=== PATIENT | female | born 1940 ===

== ENCOUNTER 2018-07-05 06:05 | Inpatient (IN) | payer MEDICARE ==
[2018-06-30 13:46] VITALS: BMI 29.0
[2018-07-05] MEDS ORDERED: Lactated Ringer's 1,000 ML IV ONE ×2 (06:57→10:02)
[2018-07-05] MEDS ORDERED: Succinylcholine 200 mg/10 ml Inj IV ONE (07:43)
[2018-07-05] MEDS ORDERED: EPINEPHrine 1 mg/ml (1:1000) Inj ONE ×2 (07:43→07:57)
[2018-07-05] MEDS ORDERED: Bupivacaine HCl 0.25% PF (30 ml) Inj ONE (07:43)
[2018-07-05] MEDS ORDERED: Lidocaine 4% (Laryng-O-Jet) Kit MM ONE (07:43)
[2018-07-05] MEDS ORDERED: Rocuronium 10 mg/ml (5 ml) ONE (07:43)
[2018-07-05] MEDS ORDERED: Propofol 10 mg/ml Inj (20 ML) ONE (07:43)
[2018-07-05] MEDS ORDERED: Thrombin Topical 5,000 Int Units Spray Kit ONE (07:49)
[2018-07-05] MEDS ORDERED: GELATIN SPONGE,ABSORB/PORCINE 1 EACH SPONGE TP ONE (07:49)
[2018-07-05] MEDS ORDERED: Morphine 1 mg/ml preservative-free Inj(Duramorph) ONE (07:56)
[2018-07-05] MEDS ORDERED: Bupivacaine HCl 0.5% PF (30 ml) Inj ONE (07:56)
[2018-07-05] MEDS ORDERED: Sodium Chloride 0.9% 20 ML IV ONE (07:57)
[2018-07-05 08:12] LABS: HEMOGLOBIN 12.6 g/dL (12.0-16.0); MEAN CELL VOLUME 92.1 fl (81.0-99.0); MEAN CORPUSCULAR HEMOGLOBIN 31.2 pg (27.0-31.0); MEAN CORPUSCULAR HGB CONC 33.9 g/dL (33.0-37.0); RBC 4.04 Mil/uL (3.80-5.20); RED CELL DISTRIBUTION WIDTH 13.5 % (11.5-14.5); WHITE BLOOD COUNT 5.2 K/uL (4.8-10.8)
[2018-07-05 08:16] LABS: PROTHROMBIN TIME 11.2 Seconds (9.8-13.1)
[2018-07-05 08:18] LABS: PARTIAL THROMBOPLASTIN TIME 35.3 Seconds (25.6-37.1)
[2018-07-05] MEDS ORDERED: Dexamethasone 4 mg/1 ml ONE (08:45)
[2018-07-05] MEDS ORDERED: Esmolol 100 mg/10ml Inj IV ONE (08:56)
[2018-07-05] MEDS ORDERED: Sodium Chloride 0.9% Inj (10mL) IV ONE (09:35)
[2018-07-05] MEDS ORDERED: Sodium Chloride 0.9% 3,000 ML IV ONE (10:15)
[2018-07-05] MEDS ORDERED: Dexamethasone 4 mg/1 ml IVP PRN (10:27)
[2018-07-05] MEDS ORDERED: DiphenhydrAMINE 50 mg/ml Inj IVP PRN (10:27)
[2018-07-05] MEDS ORDERED: Lactated Ringer's 1,000 ML IV SCH (10:30)
[2018-07-05] MEDS ORDERED: Sodium Chloride 0.9% 1,000 ML IV SCH (10:30)
--- NOTE | 2018-07-05 10:40 | PCM.SURG1 ---
Surgeon's Initial Post Op Note - Surgeon's Notes Surgeon: Misael Upton MD Utility Service Worker: Josr Boothe PA-C, Estrellita Vo PA-C Type of Anesthesia: General Endo Anesthesia Administered By: Dr. Daniel Pre-Operative Diagnosis: Right knee DJD Operative Findings: tourniquet: 80 min @350mmHg Post-Operative Diagnosis: same Operation Performed: Right total knee replacement Specimen/Specimens Removed: bone Estimated Blood Loss: EBL {In ML}: 50 Blood Products Given: N/A Drains Used: No Drains Post-Op Condition: Fair Date of Surgery/Procedure: 07/05/18 Time of Surgery/Procedure: 10:39
[2018-07-05] MEDS ORDERED: Oxycodone/Acetaminophen 5/325 mg Tab PO PRN (11:10)
--- NOTE | 2018-07-05 14:08 | RAD ---
Date of service: 07/05/2018 PROCEDURE: Right Knee Radiographs. HISTORY: Patient can PACU status post TKR COMPARISON: Comparison made with radiographs of the right knee 04/30/2018 FINDINGS: BONES: Status post right total knee arthroplasty. Hardware appears intact with satisfactory alignment. . Postoperative changes within the surrounding soft tissues including edema subcutaneous air and insitu drainage catheter. JOINTS: As above JOINT EFFUSION: Small suprapatellar joint effusion OTHER FINDINGS: None. IMPRESSION: Status post right total knee arthroplasty. Hardware appears intact with satisfactory alignment. . Postoperative changes within the surrounding soft tissues including edema subcutaneous air and insitu drainage catheter.
[2018-07-05] MEDS: Aspirin 325 mg EC Tablets PO SCH (17:17)
[2018-07-05] MEDS: ceFAZolin 2 GM in Sodium Chloride 0.9% 100 ML IVPB SCH (18:22)
[2018-07-05] MEDS: oxyCODONE 10 mg ER Tab (oxyCONTIN) PO SCH (21:05)
[2018-07-05] MEDS: Pantoprazole 40 mg EC Tab PO SCH (21:05)
--- NOTE | 2018-07-05 23:15 | OP ---
Copied To: Adrian Upton MD Attending MD: Adrian Upton MD PROCEDURE DATE: 07/05/2018 PREOPERATIVE DIAGNOSIS: Right knee osteoarthritis. POSTOPERATIVE DIAGNOSIS: Right knee osteoarthritis. PROCEDURE: Right total knee replacement. ATTENDING PHYSICIAN: Adrian Upton MD CENTRIFUGAL SCREEN TENDER: Bronson Boothe PA-C IMPLANTS SIZE: [employer]actech size-2 tibial baseplate, size-2 femur, 9-mm polyethylene insert, 29-mm patella. ANESTHESIA TYPE: General. ESTIMATED BLOOD LOSS: 100 mL. COMPLICATIONS: None. HISTORY: The patient with prolonged history of right knee pain progressively getting worse despite extensive conservative management, which included activity modification, injections, anti-inflammatory modification and physical therapy. X-rays had revealed advanced arthritis. Patient was indicated for total knee replacement due to continued pain and limited mobility. I had a detailed discussion with the patient in the office explaining the nature of the surgery, alternatives of surgery, risks and benefits, rehabilitation protocol and surgical markings. Risks of surgery include but not limited to continued pain, lack of motion, infection, vascular injury, DVT/PE, nerve injury including peroneal nerve dysfunction, reflex sympathetic dystrophy, compartment syndrome, unforeseen medical and/or anesthesia complications, limb loss, and even . The patient expressed an understanding of the risks and possible benefits of the procedure, and is also aware of the alternatives to surgery. PROCEDURE: On the day of the surgery, the patient was admitted to pre-operative holding area. A laterality sheet was completed confirming the correct operative site. The correct surgical knee was marked in the holding area and informed consent was signed from the patient. Once again, I reviewed the risks and benefits of the surgery with the patient in detail. These risks include but are not limited to continued pain, lack of motion, infection, vascular injury, DVT / PE, nerve injury including peroneal nerve dysfunction, reflex sympathetic dystrophy, symptomatic hardware, need for further procedure and surgeries, instability, iatrogenic fractures, compartment syndrome, unforeseen medical and/or anesthesia complications, limb loss, and even . The patient expressed an understanding of the risks and possible benefits of the procedure, also aware of the alternatives to surgery and signed the informed consent. The patient was transported to the operating room and placed in the supine position, general anesthesia was obtained. Exam under anesthesia range of motion from 5 to 110, stable to varus and valgus stress. A padded tourniquet was applied to patient's operative thigh and appropriate prophylactic antibiotics were given. The operative leg was draped and prepped in standard sterile manner. Timeout was completed, confirming patient's right knee to be the correct operative site. Using an Esmarch, the extremity was exsanguinated and tourniquet was inflated to 350 mmHg. The surgical incision markings were made using patella border, tibial tubercle, patella and quadriceps tendon. Using a 10 blade, a midline incision was made. Skin dissection was taken until the prepatellar fascia was identified and the corners of the patellar tendon were marked for proper closure at the end of the procedure. Using a fresh 10 blade, a medial parapatellar arthrotomy was performed. The knee was exposed in the standard manner. The deep MCL was elevated for exposure, medial and lateral menisci were removed, ACL and PCL were also transected. The tibia was subluxed anteriorly. Planned tibial cut was made with power saw, using extra-medullary guide, perpendicular to mechanical axis of the tibia. After the cut was made, the alignment was also checked and was found to be appropriate. Tibial cut surface was measured with trial base plate and it was noted that size-2 tibial baseplate was provide sufficient coverage without overhang. Tibial component was externally rotated and marked. Next, the knee was placed into 90 degrees of flexion. A drill hole was made within the femoral notch anterior to PCL insertion for placement of intramedullary femoral ronald. Intramedullary femoral ronald was inserted within the femoral canal and planned distal femoral cut was made. After the cut, knee was brought into full extension. Spacer blocks were used to check the extension balancing both in full extension and 30 degrees of flexion. It was found that size-9 trial spacer block allowed full extension with symmetric varus and valgus balancing. Next, we proceed with Patella resurfacing. Patella width was found to 23 mm. Using the free-hand technique the arthritic patella surface was resected. Patella was sized using the guide and it was noted that 29 mm. Patella dome button would be appropriate for the patient. Next, the size of femoral component was determined using the posterior referencing guide. It was noted that a size-2 femur. Femur would be appropriate for this patient without causing any significant notching. A 4 x 1 cutting block was placed and flexion gap balancing was checked. The flexion gap was found to be symmetric to the extension gap. Anterior and posterior condyle, anterior and posterior chamfer cuts were made. Next, appropriate size box cut for femoral component was prepared using the guide. The femoral trial component was impacted onto the distal femur. Appropriate size tibial trial component was also placed on the cut surface of the tibia. Using the drill and punch, keel for tibial implant was prepared. Trial tibial tray was secured onto the tibia using pins. Different size trial polyethylene inserts were secured on to the trial tibial tray to critically assess the following parameters: Full range of motion, extension and flexion gap balancing, mid-flexion stability, anterior and posterior drawer, and patellar tracking. All parameter were found to be satisfactory with 11-mm insert. All the trial components were removed. Implants were opened on the back table. Cement was mixed and we proceed with cement fixation of the implants. Tibial tray, femoral component and patellar dome button were secured with cement. Polyethylene insert was secured onto the tibial tray using locking mechanism. The knee was reduced and brought into full extension. Cement was allowed to harden until final component fixation. Knee was taken through the final range of motion for stability testing, and found to be satisfactory. Upon final cement fixation of all components, it was noted that there is a slight lateral maltracking of the patella. Decision was made to address the patellar maltracking with lateral release. Using the electrocautery, limited lateral prepatellar arthrotomy was performed, which improved patellar tracking. 60 cc of custom cocktail mixture was injected into posterior capsule, MCL, LCL, quadriceps tendon, and patellar tendon. Wound was copiously irrigated with sterile antibiotic solution using pulse lavage. Arthrotomy was closed using heavy suture and wound was closed in standard manner. Patient was extubated, transferred to stretcher and taken to the recovery room. Post-operative instructions were provided, physical therapy consult was requested along with DVT prophylaxis and appropriate pain medications. During this procedure, I was assisted by Bronson Boothe PA-C, who assisted in positioning the patient on the operating room table as well as transferring the patient from the operating room table to the recovery room stretcher. In addition, Bronson Boothe assisted me during the actual operative procedure by positioning, protecting critical neurovascular structures, exposure of the joint, and proper positioning of the implants. The presence of Bronson oBothe as my operative assistant professor of german was medically necessary to ensure the utmost safety of the patient in the pre, intra-, and post-operative periods. Adrian Upton MD
--- NOTE | 2018-07-06 00:42 | CP.PCM.HP ---
History of Present Illness - History of Present Illness History of Present Illness: This is a 78 y/o female admitted for right TKR for severe DJD knee She had tried conservative measures but to no avail. Medical Hx HTn Hyperlipidemia gastritis OA Present on Admission - Present on Admission Any Indicators Present on Admission: No History of DVT/PE: No History of Uncontrolled Diabetes: No Urinary Catheter: No Decubitus Ulcer Present: No Review of Systems - Musculoskeletal Musculoskeletal: Arthralgias Past Patient History - Past Medical History & Family History Past Medical History?: Yes - Past Social History Smoking Status: Never Smoked - CARDIAC Hx Cardiac Disorders: Yes Hx Hypertension: Yes - PULMONARY Hx Respiratory Disorders: No - NEUROLOGICAL Hx Neurological Disorder: No - HEENT Hx HEENT Problems: Yes Hx Cataracts: Yes - RENAL Hx Chronic Kidney Disease: No - ENDOCRINE/METABOLIC Hx Endocrine Disorders: No - HEMATOLOGICAL/ONCOLOGICAL Hx Blood Disorders: No - INTEGUMENTARY Hx Dermatological Problems: No - MUSCULOSKELETAL/RHEUMATOLOGICAL Hx Musculoskeletal Disorders: Yes Hx Arthritis: Yes (knees) - GASTROINTESTINAL Hx Gastrointestinal Disorders: Yes Hx Gastritis: Yes - GENITOURINARY/GYNECOLOGICAL Hx Genitourinary Disorders: No - PSYCHIATRIC Hx Psychophysiologic Disorder: No Hx Substance Use: No - SURGICAL HISTORY Hx Surgeries: Yes Hx Arthroscopy: Yes (right knee) Hx Cataract Extraction: Yes (bilateral) Hx Herniorrhaphy: Yes (umbilical hernia) - ANESTHESIA Hx Anesthesia: Yes Hx Anesthesia Reactions: No Has any member of the family had a problem w/ anesthesia?: No Meds Allergies/Adverse Reactions: Allergies Allergy/AdvReac Type Severity Reaction Status Date / Time No Known Allergies Allergy Verified 05/25/18 20:02 Physical Exam - Head Exam Head Exam: NORMAL INSPECTION - Eye Exam Eye Exam: Normal appearance - ENT Exam ENT Exam: Mucous Membranes Moist - Respiratory Exam Respiratory Exam: Clear to Auscultation Bilateral - Cardiovascular Exam Cardiovascular Exam: REGULAR RHYTHM - Neurological Exam Neurological exam: CN II-XII Intact - Psychiatric Exam Psychiatric exam: Normal Affect Results - Vital Signs Recent Vital Signs: Last Vital Signs Temp 98.6 F 07/05/18 21:00 Pulse 87 07/05/18 21:00 Resp 18 07/05/18 21:00 BP 128/55 L 07/05/18 21:00 Pulse Ox 98 07/05/18 21:00 - Labs Result Diagrams: 07/05/18 07:30 Labs: Laboratory Results - last 24 hr 07/05/18 07/05/18 07/05/18 07:30 07:30 07:30 WBC 5.2 RBC 4.04 Hgb 12.6 Hct 37.3 MCV 92.1 MCH 31.2 H MCHC 33.9 RDW 13.5 Plt Count 256 PT 11.2 INR 1.0 APTT 35.3 Blood Type AB POSITIVE Blood Type Confirm Antibody Screen Negative BBK History Checked No verified bt 07/05/18 08:50 WBC RBC Hgb Hct MCV MCH MCHC RDW Plt Count PT INR APTT Blood Type Blood Type Confirm AB POSITIVE Antibody Screen BBK History Checked Assessment & Plan (1) Status post total knee replacement Status: Acute (2) Hypertension Status: Acute (3) Hyperlipidemia Status: Acute
[2018-07-06] MEDS: ceFAZolin 2 GM in Sodium Chloride 0.9% 100 ML IVPB SCH (01:20)
[2018-07-06 06:19] LABS: HEMOGLOBIN 11.1 g/dL (12.0-16.0); MEAN CELL VOLUME 93.6 fl (81.0-99.0); MEAN CORPUSCULAR HGB CONC 33.1 g/dL (33.0-37.0); RBC 3.58 Mil/uL (3.80-5.20); RED CELL DISTRIBUTION WIDTH 13.7 % (11.5-14.5); WHITE BLOOD COUNT 9.4 K/uL (4.8-10.8)
[2018-07-06 06:23] LABS: BLOOD UREA NITROGEN 18 mg/dl (7-17); CALCIUM 7.9 mg/dL (8.4-10.2); GFR NON-AFRICAN AMERICAN > 60
[2018-07-06] MEDS: oxyCODONE 10 mg ER Tab (oxyCONTIN) PO SCH ×2 (08:49→20:24)
[2018-07-06] MEDS: Pantoprazole 40 mg EC Tab PO SCH (08:50)
[2018-07-06] MEDS ORDERED: Aspirin 325 mg EC Tablets PO SCH (09:00)
[2018-07-06] MEDS: Aspirin 325 mg EC Tablets PO SCH ×2 (10:16→16:47)
--- NOTE | 2018-07-06 12:07 | CP.PCM.PN ---
Subjective - Date & Time of Evaluation Date of Evaluation: 07/06/18 Time of Evaluation: 10:30 - Subjective Subjective: Patient seen and examined at bedside comfortable. Pain is well controlled. Tolerated PT well. No acute events overnight. Denies CP/SOB/N/V/D/fever/ dizziness. Objective - Vital Signs/Intake and Output Vital Signs (last 24 hours): Temp Pulse Resp BP Pulse Ox 97.8 F 54 L 18 114/67 96 07/06/18 08:54 07/06/18 10:57 07/06/18 08:54 07/06/18 08:54 07/06/18 10:57 - Medications Medications: Current Medications Acetaminophen (Tylenol 325mg Tab) 650 mg PO Q6 PRN PRN Reason: Fever > 101 degrees Aspirin (Ecotrin) 325 mg PO BID [facility] Last Admin: 07/06/18 10:16 Dose: 325 mg Atorvastatin Calcium (Lipitor) 20 mg PO HS [facility] Last Admin: 07/05/18 21:05 Dose: 20 mg Celecoxib (Celebrex) 200 mg PO DAILY [facility] Docusate Sodium (Colace) 100 mg PO BID [facility] Last Admin: 07/06/18 08:47 Dose: 100 mg Lactated Ringer's (Lactated Ringer's) 1,000 mls @ 125 mls/hr IV .Q8H [facility] Ketorolac Tromethamine (Toradol) 15 mg IVP Q8 [facility] Stop: 07/07/18 09:01 Last Admin: 07/06/18 10:14 Dose: 15 mg Losartan Potassium (Cozaar) 100 mg PO DAILY [facility] Last Admin: 07/06/18 08:48 Dose: 100 mg Meperidine HCl (Demerol) 12.5 mg IVP Q5M PRN PRN Reason: Shivering/Rigor Oxycodone HCl (Oxycontin Extended Release Tab) 10 mg PO Q12 [facility] Stop: 07/08/18 21:01 Last Admin: 07/06/18 08:49 Dose: 10 mg Oxycodone/Acetaminophen (Percocet 5/325 Mg Tab) 1 tab PO Q4 PRN PRN Reason: Pain, moderate (4-7) Stop: 07/08/18 11:11 Pantoprazole Sodium (Protonix Ec Tab) 40 mg PO DAILY [facility] Last Admin: 07/06/18 08:50 Dose: 40 mg - Labs Labs: 07/06/18 05:35 07/06/18 05:35 PT 11.2 Seconds (9.8-13.1) 07/05/18 07:30 INR 1.0 07/05/18 07:30 APTT 35.3 Seconds (25.6-37.1) 07/05/18 07:30 - Extremities Exam Additional comments: R knee: Dressings CDI, NILS intact sensation intact SP/DP/TN motor EHL/FHL/TA/G pedal pulses intact comps soft NT Assessment and Plan (1) Status post total knee replacement Assessment & Plan: POD #1 s/p R TKA doing well -Maintain NILS, will change tomorrow -DVT ppx -complete postop abx -PT/OT WBAT -CPM as per order -Discharge planning to TCU tomorrow -above d/w Dr. Upton in agreement Status: Acute
[2018-07-07 06:19] LABS: MEAN CELL VOLUME 93.8 fl (81.0-99.0); MEAN CORPUSCULAR HEMOGLOBIN 31.1 pg (27.0-31.0); MEAN CORPUSCULAR HGB CONC 33.1 g/dL (33.0-37.0); RBC 3.53 Mil/uL (3.80-5.20); RED CELL DISTRIBUTION WIDTH 13.8 % (11.5-14.5); WHITE BLOOD COUNT 7.9 K/uL (4.8-10.8)
[2018-07-07 06:33] LABS: BLOOD UREA NITROGEN 17 mg/dl (7-17); CALCIUM 8.3 mg/dL (8.4-10.2); GFR NON-AFRICAN AMERICAN > 60
[2018-07-07 08:10] VITALS: BP 122/63; RESP 20; TEMP 99; O2SAT 97
[2018-07-07] MEDS: oxyCODONE 10 mg ER Tab (oxyCONTIN) PO SCH (08:56)
[2018-07-07] MEDS: Pantoprazole 40 mg EC Tab PO SCH (08:57)
[2018-07-07] MEDS ORDERED: Cholecalciferol 1,000 INTLU TAB PO SCH (09:00)
[2018-07-07 09:03] VITALS: PULSE 97
[2018-07-07] MEDS: Aspirin 325 mg EC Tablets PO SCH (10:25)
--- NOTE | 2018-07-07 11:29 | CP.PCM.PN ---
Subjective - Date & Time of Evaluation Date of Evaluation: 07/07/18 Time of Evaluation: 10:00 - Subjective Subjective: Patient seen and examined OOB to chair comfortable. Pain is minimal. Tolerating PT and CPM well. No other complaints. Denies CP/SOB/N/V/D/fever. Objective - Vital Signs/Intake and Output Vital Signs (last 24 hours): Temp Pulse Resp BP Pulse Ox 99 F 97 H 20 122/63 97 07/07/18 08:10 07/07/18 08:58 07/07/18 08:10 07/07/18 08:58 07/07/18 08:10 - Medications Medications: Current Medications Acetaminophen (Tylenol 325mg Tab) 650 mg PO Q6 PRN PRN Reason: Fever > 101 degrees Aspirin (Ecotrin) 325 mg PO BID [facility] Last Admin: 07/07/18 10:25 Dose: 325 mg Atorvastatin Calcium (Lipitor) 20 mg PO HS [facility] Last Admin: 07/06/18 21:57 Dose: 20 mg Celecoxib (Celebrex) 200 mg PO DAILY [facility] Last Admin: 07/07/18 08:58 Dose: 200 mg Cholecalciferol (Vitamin D) 2,000 intlu PO DAILY [facility] Last Admin: 07/07/18 09:00 Dose: 2,000 intlu Docusate Sodium (Colace) 100 mg PO BID [facility] Last Admin: 07/07/18 08:58 Dose: 100 mg Lactated Ringer's (Lactated Ringer's) 1,000 mls @ 125 mls/hr IV .Q8H [facility] Losartan Potassium (Cozaar) 100 mg PO DAILY [facility] Last Admin: 07/07/18 08:58 Dose: 100 mg Oxycodone HCl (Oxycontin Extended Release Tab) 10 mg PO Q12 [facility] Stop: 07/08/18 21:01 Last Admin: 07/07/18 08:56 Dose: 10 mg Oxycodone/Acetaminophen (Percocet 5/325 Mg Tab) 1 tab PO Q4 PRN PRN Reason: Pain, moderate (4-7) Stop: 07/08/18 11:11 Pantoprazole Sodium (Protonix Ec Tab) 40 mg PO DAILY [facility] Last Admin: 07/07/18 08:57 Dose: 40 mg - Labs Labs: 07/07/18 05:20 07/07/18 05:20 PT 11.2 Seconds (9.8-13.1) 07/05/18 07:30 INR 1.0 07/05/18 07:30 APTT 35.3 Seconds (25.6-37.1) 07/05/18 07:30 - Extremities Exam Additional comments: R knee: Dressings CDI, NILS saturated with sangiunous drainage, wound clean and intact with scant bloody drainage sensation intact SP/DP/TN motor EHL/FHL/TA/G pedal pulses intact comps soft NT Assessment and Plan (1) Status post total knee replacement Assessment & Plan: POD #2 s/p R TKA doing well -NILS removed, steri-strips and dry dressings applied -DVT ppx -PT/OT WBAT -CPM as per order -Orthopedically stable for discharge to TCU -above d/w Dr. Upton in agreement Status: Acute
== END 2018-07-07 13:44 | DRG 470 ==
LOC: H.OPSURG 06:05 → H.MEDSURG1 10:30
PROVIDERS: ADMIT Family Medicine; ATTEND Family Medicine
PROC: 0SRC0J9 Replacement of Right Knee Joint with Synthetic Substitute, Cemented, Open Approach (ICD-10-PCS; principal; 2018-07-05 10:45)
DX: M17.11 Unilateral primary osteoarthritis, right knee (principal); I10 Essential (primary) hypertension; E78.5 Hyperlipidemia, unspecified; K29.70 Gastritis, unspecified, without bleeding

== ENCOUNTER 2018-07-07 11:45 | Inpatient (IN) | payer MEDICARE ==
[2018-07-07 14:03] VITALS: BMI 30.1
[2018-07-07] MEDS ORDERED: Oxycodone/Acetaminophen 5/325 mg Tab PO PRN (14:17)
[2018-07-07] MEDS ORDERED: Tuberculin 5 Units/0.1 ml Inj ID ONE (16:00)
[2018-07-07] MEDS: Aspirin 325 mg EC Tablets PO SCH (17:40)
[2018-07-07] MEDS: oxyCODONE 10 mg ER Tab (oxyCONTIN) PO SCH (21:44)
[2018-07-08 06:32] LABS: HEMOGLOBIN 11.3 g/dL (12.0-16.0); MEAN CELL VOLUME 93.5 fl (81.0-99.0); MEAN CORPUSCULAR HEMOGLOBIN 31.6 pg (27.0-31.0); MEAN CORPUSCULAR HGB CONC 33.8 g/dL (33.0-37.0); RBC 3.57 Mil/uL (3.80-5.20); RED CELL DISTRIBUTION WIDTH 13.5 % (11.5-14.5)
[2018-07-08] MEDS ORDERED: Pantoprazole 20 mg EC Tab PO SCH (09:00)
[2018-07-08] MEDS: Pantoprazole 40 mg EC Tab PO SCH (09:44)
[2018-07-08] MEDS: oxyCODONE 10 mg ER Tab (oxyCONTIN) PO SCH ×2 (09:44→20:17)
[2018-07-08] MEDS: Cholecalciferol 1,000 INTLU TAB PO SCH (09:44)
[2018-07-08] MEDS: Aspirin 325 mg EC Tablets PO SCH ×2 (09:44→19:00)
--- NOTE | 2018-07-08 09:50 | CP.PCM.PN ---
Subjective - Date & Time of Evaluation Date of Evaluation: 07/08/18 Time of Evaluation: 09:49 - Subjective Subjective: Patient states she is feeling a little better everyday. Denies CP/SOB/ dizziness. Objective - Vital Signs/Intake and Output Vital Signs (last 24 hours): Temp Pulse Resp BP Pulse Ox 98.2 F 86 20 132/70 98 07/08/18 07:40 07/08/18 07:40 07/08/18 07:40 07/08/18 07:40 07/08/18 07:40 - Medications Medications: Current Medications Aspirin (Ecotrin) 325 mg PO BID [facility] Last Admin: 07/07/18 17:40 Dose: 325 mg Atorvastatin Calcium (Lipitor) 20 mg PO HS [facility] Last Admin: 07/07/18 21:45 Dose: 20 mg Celecoxib (Celebrex) 200 mg PO DAILY [facility] Cholecalciferol (Vitamin D) 2,000 intlu PO DAILY [facility] Docusate Sodium (Colace) 100 mg PO BID [facility] Last Admin: 07/07/18 17:40 Dose: 100 mg Losartan Potassium (Cozaar) 100 mg PO DAILY [facility] Oxycodone HCl (Oxycontin Extended Release Tab) 10 mg PO Q12 [facility] Stop: 07/10/18 21:01 Last Admin: 07/07/18 21:44 Dose: 10 mg Oxycodone/Acetaminophen (Percocet 5/325 Mg Tab) 1 tab PO Q4 PRN PRN Reason: Pain, moderate (4-7) Stop: 07/10/18 14:18 Pantoprazole Sodium (Protonix Ec Tab) 40 mg PO DAILY [facility] - Labs Labs: 07/08/18 05:35 - Extremities Exam Additional comments: Right knee: incision intact, no erythema, minimal swelling, calves soft NT neg hoamns +ROM ankle/toes, sensation intact, +DP/PT pulses Assessment and Plan (1) Osteoarthritis of right knee Assessment & Plan: POD#3 s/p right TKR orthopedically stable cont VTE proph PT/OT d/w Dr. Upton, agrees with above Status: Acute (2) Vitamin D deficiency Status: Acute
--- NOTE | 2018-07-08 13:53 | CP.PCM.HP ---
<Dom Mistry - Last Filed: 07/08/18 15:46> History of Present Illness - History of Present Illness History of Present Illness: 78 yo F pmhx of htn, dyslipidemia, gastritis and OA s/p R total knee replacement POD 3. Admitted to TCU for further PT/OT. Present on Admission - Present on Admission Any Indicators Present on Admission: No History of Uncontrolled Diabetes: No Review of Systems - Constitutional Constitutional: As Per HPI - Cardiovascular Cardiovascular: absent: Chest Pain - Respiratory Respiratory: absent: Cough, Dyspnea - Gastrointestinal Gastrointestinal: absent: Abdominal Pain - Neurological Neurological: As Per HPI, Abnormal Gait (2/2 R knee replacement) Past Patient History - Past Medical History & Family History Past Medical History?: Yes - Past Social History Smoking Status: Never Smoked Alcohol: None Drugs: Denies Home Situation {Lives}: With Family - CARDIAC Hx Hypertension: Yes - PULMONARY Hx Respiratory Disorders: No - NEUROLOGICAL Hx Neurological Disorder: No - HEENT Hx HEENT Problems: Yes Hx Cataracts: Yes - RENAL Hx Chronic Kidney Disease: No - ENDOCRINE/METABOLIC Hx Endocrine Disorders: No - HEMATOLOGICAL/ONCOLOGICAL Hx AIDS: No Hx Human Immunodeficiency Virus (HIV): No - INTEGUMENTARY Hx Dermatological Problems: No - MUSCULOSKELETAL/RHEUMATOLOGICAL Hx Arthritis: Yes - GASTROINTESTINAL Hx Gastrointestinal Disorders: Yes Hx Gastritis: Yes - GENITOURINARY/GYNECOLOGICAL Hx Genitourinary Disorders: No - PSYCHIATRIC Hx Psychophysiologic Disorder: No Hx Substance Use: No - SURGICAL HISTORY Hx Surgeries: Yes Hx Arthroscopy: Yes (right knee) Hx Cataract Extraction: Yes (bilateral) Hx Herniorrhaphy: Yes (umbilical hernia) - ANESTHESIA Hx Anesthesia: Yes Hx Anesthesia Reactions: No Meds Allergies/Adverse Reactions: Allergies Allergy/AdvReac Type Severity Reaction Status Date / Time No Known Allergies Allergy Verified 07/07/18 14:01 Physical Exam - Constitutional Appears: Well, No Acute Distress - Eye Exam Eye Exam: EOMI - Respiratory Exam Respiratory Exam: Clear to Auscultation Bilateral, NORMAL BREATHING PATTERN. absent: Wheezes - Cardiovascular Exam Cardiovascular Exam: REGULAR RHYTHM, +S1, +S2 - GI/Abdominal Exam GI & Abdominal Exam: Normal Bowel Sounds, Soft. absent: Tenderness - Neurological Exam Neurological exam: Alert, CN II-XII Intact, Oriented x3 - Psychiatric Exam Psychiatric exam: Normal Affect, Normal Mood Results - Vital Signs Recent Vital Signs: Last Vital Signs Temp 98.2 F 07/08/18 07:40 Pulse 86 07/08/18 09:44 Resp 20 07/08/18 07:40 BP 132/70 07/08/18 09:44 Pulse Ox 98 07/08/18 07:40 - Labs Result Diagrams: 07/08/18 05:35 Labs: Laboratory Results - last 24 hr 07/08/18 05:35 WBC 7.0 RBC 3.57 L Hgb 11.3 L Hct 33.3 L MCV 93.5 MCH 31.6 H MCHC 33.8 RDW 13.5 Plt Count 177 Assessment & Plan (1) Status post right knee replacement Status: Acute (2) Osteoarthritis of right knee Status: Acute (3) Hyperlipidemia Status: Acute (4) Hypertension Status: Acute - Assessment and Plan (Free Text) Plan: Continue with current treatment/care as ordered Continue PT/OT Monitor for ambulation case dw Dr. Randall Mistry MD PGY2 <Ten Pereira - Last Filed: 07/10/18 23:28> Results - Vital Signs Recent Vital Signs: Last Vital Signs Temp 96.8 F L 07/10/18 19:53 Pulse 58 L 07/10/18 19:53 Resp 20 07/10/18 19:53 BP 117/69 07/10/18 19:53 Pulse Ox 96 07/10/18 19:53 - Labs Result Diagrams: 07/08/18 05:35 Assessment & Plan - Assessment and Plan (Free Text) Plan: I was present during evaluation and discussed with dr Mistry re plans of care and tx. Ten Pereira M.D.
[2018-07-09] MEDS: oxyCODONE 10 mg ER Tab (oxyCONTIN) PO SCH ×2 (09:43→21:49)
[2018-07-09] MEDS: Pantoprazole 40 mg EC Tab PO SCH (09:47)
[2018-07-09] MEDS: Aspirin 325 mg EC Tablets PO SCH ×2 (09:47→17:00)
[2018-07-09] MEDS: Cholecalciferol 1,000 INTLU TAB PO SCH (09:48)
[2018-07-09] MEDS: Lidocaine 5% Patch TD SCH (10:05)
[2018-07-10] MEDS: oxyCODONE 10 mg ER Tab (oxyCONTIN) PO SCH ×2 (08:53→21:29)
[2018-07-10] MEDS: Aspirin 325 mg EC Tablets PO SCH ×2 (08:53→17:54)
[2018-07-10] MEDS: Lidocaine 5% Patch TD SCH (08:53)
[2018-07-10] MEDS: Cholecalciferol 1,000 INTLU TAB PO SCH (08:53)
[2018-07-10] MEDS: Pantoprazole 40 mg EC Tab PO SCH (08:54)
--- NOTE | 2018-07-10 16:03 | CP.PCM.PN ---
Subjective - Date & Time of Evaluation Date of Evaluation: 07/10/18 Time of Evaluation: 11:00 - Subjective Subjective: Patient seen and examined at bedside. No acute events overnight. Patient states feels much better after passing stool three times yesterday. denies fever, diarrhea. no chills. states occasinally dizziness if she gets up to fast. no other complaints at this time. Objective - Vital Signs/Intake and Output Vital Signs (last 24 hours): Temp Pulse Resp BP Pulse Ox 96.8 F L 78 20 100/59 L 96 07/10/18 15:28 07/10/18 15:28 07/10/18 15:28 07/10/18 15:28 07/10/18 15:28 - Medications Medications: Current Medications Acetaminophen (Tylenol 325mg Tab) 650 mg PO Q4 PRN PRN Reason: Pain, moderate (4-7) Aspirin (Ecotrin) 325 mg PO BID [facility] Last Admin: 07/10/18 08:53 Dose: 325 mg Atorvastatin Calcium (Lipitor) 20 mg PO HS [facility] Last Admin: 07/09/18 21:57 Dose: 20 mg Celecoxib (Celebrex) 200 mg PO DAILY [facility] Last Admin: 07/10/18 08:52 Dose: Not Given Cholecalciferol (Vitamin D) 2,000 intlu PO DAILY [facility] Last Admin: 07/10/18 08:53 Dose: 2,000 intlu Docusate Sodium (Colace) 100 mg PO BID [facility] Last Admin: 07/10/18 08:52 Dose: 100 mg Ibuprofen (Motrin Tab) 400 mg PO TID [facility] Last Admin: 07/10/18 14:00 Dose: Not Given Lidocaine (Lidoderm) 1 ea TD DAILY [facility] Last Admin: 07/10/18 08:53 Dose: 1 ea Losartan Potassium (Cozaar) 100 mg PO DAILY [facility] Last Admin: 07/10/18 08:52 Dose: 100 mg Ondansetron HCl (Zofran Odt) 4 mg PO BID PRN PRN Reason: Nausea/Vomiting Last Admin: 07/08/18 18:22 Dose: 4 mg Oxycodone HCl (Oxycontin Extended Release Tab) 10 mg PO Q12 [facility] Stop: 07/10/18 21:01 Last Admin: 07/10/18 08:53 Dose: 10 mg Pantoprazole Sodium (Protonix Ec Tab) 40 mg PO DAILY [facility] Last Admin: 07/10/18 08:54 Dose: 40 mg Sodium Phosphate (Fleet Enema) 135 ml [place] ONCE PRN PRN Reason: Constipation - Labs Labs: 07/08/18 05:35 - Constitutional Appears: Well - Head Exam Head Exam: ATRAUMATIC, NORMAL INSPECTION, NORMOCEPHALIC - Eye Exam Eye Exam: Normal appearance - Neck Exam Neck Exam: Normal Inspection - Respiratory Exam Respiratory Exam: Clear to Ausculation Bilateral, NORMAL BREATHING PATTERN - Cardiovascular Exam Cardiovascular Exam: REGULAR RHYTHM, +S1, +S2. absent: Murmur - GI/Abdominal Exam GI & Abdominal Exam: Soft, Normal Bowel Sounds. absent: Tenderness - Back Exam Back Exam: NORMAL INSPECTION - Neurological Exam Neurological Exam: Alert, Awake - Psychiatric Exam Psychiatric exam: Normal Affect, Normal Mood - Skin Skin Exam: Normal Color, Warm Assessment and Plan - Assessment and Plan (Free Text) Assessment: 78 yo F pmhx of htn, dyslipidemia, gastritis and OA s/p R total knee replacement. Admitted to TCU for further PT/OT. plan c/w meds as ordered c/w PT/OT ask for assistance if plan to OOB encouraged PO hydration
--- NOTE | 2018-07-10 23:31 | CP.PCM.PN ---
Subjective - Date & Time of Evaluation Date of Evaluation: 07/09/18 Time of Evaluation: 10:40 - Subjective Subjective: Patient remains stable Has no bm yet since surgery Has no fever has no cough Doing well with PT Objective - Vital Signs/Intake and Output Vital Signs (last 24 hours): Temp Pulse Resp BP Pulse Ox 96.8 F L 58 L 20 117/69 96 07/10/18 19:53 07/10/18 19:53 07/10/18 19:53 07/10/18 19:53 07/10/18 19:53 - Medications Medications: Current Medications Acetaminophen (Tylenol 325mg Tab) 650 mg PO Q4 PRN PRN Reason: Pain, moderate (4-7) Aspirin (Ecotrin) 325 mg PO BID [facility] Last Admin: 07/10/18 17:54 Dose: 325 mg Atorvastatin Calcium (Lipitor) 20 mg PO HS [facility] Last Admin: 07/10/18 21:29 Dose: 20 mg Celecoxib (Celebrex) 200 mg PO DAILY [facility] Last Admin: 07/10/18 08:52 Dose: Not Given Cholecalciferol (Vitamin D) 2,000 intlu PO DAILY [facility] Last Admin: 07/10/18 08:53 Dose: 2,000 intlu Docusate Sodium (Colace) 100 mg PO BID [facility] Last Admin: 07/10/18 17:54 Dose: 100 mg Ibuprofen (Motrin Tab) 400 mg PO TID [facility] Last Admin: 07/10/18 17:54 Dose: Not Given Lidocaine (Lidoderm) 1 ea TD DAILY [facility] Last Admin: 07/10/18 08:53 Dose: 1 ea Losartan Potassium (Cozaar) 100 mg PO DAILY [facility] Last Admin: 07/10/18 08:52 Dose: 100 mg Ondansetron HCl (Zofran Odt) 4 mg PO BID PRN PRN Reason: Nausea/Vomiting Last Admin: 07/08/18 18:22 Dose: 4 mg Pantoprazole Sodium (Protonix Ec Tab) 40 mg PO DAILY [facility] Last Admin: 07/10/18 08:54 Dose: 40 mg Sodium Phosphate (Fleet Enema) 135 ml [place] ONCE PRN PRN Reason: Constipation - Labs Labs: 07/08/18 05:35 - Head Exam Head Exam: NORMAL INSPECTION - Eye Exam Eye Exam: Normal appearance - ENT Exam ENT Exam: Mucous Membranes Moist - Respiratory Exam Respiratory Exam: Clear to Ausculation Bilateral - Cardiovascular Exam Cardiovascular Exam: REGULAR RHYTHM - GI/Abdominal Exam GI & Abdominal Exam: Normal Bowel Sounds - Neurological Exam Neurological Exam: Awake Assessment and Plan (1) Osteoarthritis of right knee Status: Acute (2) Status post right knee replacement Status: Acute (3) Hypertension Status: Acute (4) Constipation Status: Acute - Assessment and Plan (Free Text) Plan: Cont meds Cont tx Cont PT lactulose x 3 if no response will do fleet enema
[2018-07-11] MEDS: Pantoprazole 40 mg EC Tab PO SCH (08:42)
[2018-07-11] MEDS: Aspirin 325 mg EC Tablets PO SCH ×2 (08:42→17:48)
[2018-07-11] MEDS: Cholecalciferol 1,000 INTLU TAB PO SCH (08:43)
[2018-07-11] MEDS: Lidocaine 5% Patch TD SCH (08:43)
--- NOTE | 2018-07-11 09:24 | CP.PCM.PN ---
Subjective - Date & Time of Evaluation Date of Evaluation: 07/11/18 Time of Evaluation: 09:22 - Subjective Subjective: Patient states she is feeling a little tired today. SHe had some pain in her knee overnight. +BM over weekend. Denies CP/SOB/dizziness. Objective - Vital Signs/Intake and Output Vital Signs (last 24 hours): Temp Pulse Resp BP Pulse Ox 96.8 F L 58 L 20 117/69 96 07/10/18 19:53 07/10/18 19:53 07/10/18 19:53 07/10/18 19:53 07/10/18 19:53 - Medications Medications: Current Medications Acetaminophen (Tylenol 325mg Tab) 650 mg PO Q4 PRN PRN Reason: Pain, moderate (4-7) Last Admin: 07/11/18 00:39 Dose: 650 mg Aspirin (Ecotrin) 325 mg PO BID [facility] Last Admin: 07/11/18 08:42 Dose: 325 mg Atorvastatin Calcium (Lipitor) 20 mg PO HS [facility] Last Admin: 07/10/18 21:29 Dose: 20 mg Celecoxib (Celebrex) 200 mg PO DAILY [facility] Last Admin: 07/11/18 08:41 Dose: Not Given Cholecalciferol (Vitamin D) 2,000 intlu PO DAILY [facility] Last Admin: 07/11/18 08:43 Dose: 2,000 intlu Docusate Sodium (Colace) 100 mg PO BID [facility] Last Admin: 07/11/18 08:41 Dose: 100 mg Ibuprofen (Motrin Tab) 400 mg PO TID [facility] Last Admin: 07/11/18 08:41 Dose: 400 mg Lidocaine (Lidoderm) 1 ea TD DAILY [facility] Last Admin: 07/11/18 08:43 Dose: 1 ea Losartan Potassium (Cozaar) 100 mg PO DAILY [facility] Last Admin: 07/10/18 08:52 Dose: 100 mg Ondansetron HCl (Zofran Odt) 4 mg PO BID PRN PRN Reason: Nausea/Vomiting Last Admin: 07/08/18 18:22 Dose: 4 mg Pantoprazole Sodium (Protonix Ec Tab) 40 mg PO DAILY [facility] Last Admin: 07/11/18 08:42 Dose: 40 mg Sodium Phosphate (Fleet Enema) 135 ml [place] ONCE PRN PRN Reason: Constipation - Labs Labs: 07/08/18 05:35 - Extremities Exam Additional comments: Right knee: mild swelling, mild ecchymosis, Calves soft NT eng homans +ROM ankle /toes, sesnation intact incision intact, scant sang drainage inferior incision, no erythema Assessment and Plan (1) Osteoarthritis of right knee Assessment & Plan: POD# 6 s/p right TKR PT/OT d/c planning VTE proph aspirin per Dr. Upton ortho stable dressing change prn d/w DR. Upton, agrees with above Status: Acute (2) Vitamin D deficiency Status: Acute
--- NOTE | 2018-07-11 12:18 | CP.PCM.PN ---
Subjective - Date & Time of Evaluation Date of Evaluation: 07/11/18 Time of Evaluation: 10:00 - Subjective Subjective: Patient seen and examined at bedside. No acute events overnight. Patient states feels much better. No dizziness or constipation. denies fever, diarrhea. no chills. Pain is well controlled. no other complaints at this time. Objective - Vital Signs/Intake and Output Vital Signs (last 24 hours): Temp Pulse Resp BP Pulse Ox 96.8 F L 58 L 20 117/69 96 07/10/18 19:53 07/10/18 19:53 07/10/18 19:53 07/10/18 19:53 07/10/18 19:53 - Medications Medications: Current Medications Acetaminophen (Tylenol 325mg Tab) 650 mg PO Q4 PRN PRN Reason: Pain, moderate (4-7) Last Admin: 07/11/18 00:39 Dose: 650 mg Aspirin (Ecotrin) 325 mg PO BID [facility] Last Admin: 07/11/18 08:42 Dose: 325 mg Atorvastatin Calcium (Lipitor) 20 mg PO HS [facility] Last Admin: 07/10/18 21:29 Dose: 20 mg Cholecalciferol (Vitamin D) 2,000 intlu PO DAILY [facility] Last Admin: 07/11/18 08:43 Dose: 2,000 intlu Docusate Sodium (Colace) 100 mg PO BID [facility] Last Admin: 07/11/18 08:41 Dose: 100 mg Ibuprofen (Motrin Tab) 400 mg PO TID [facility] Last Admin: 07/11/18 08:41 Dose: 400 mg Lidocaine (Lidoderm) 1 ea TD DAILY [facility] Last Admin: 07/11/18 08:43 Dose: 1 ea Losartan Potassium (Cozaar) 100 mg PO DAILY [facility] Last Admin: 07/10/18 08:52 Dose: 100 mg Ondansetron HCl (Zofran Odt) 4 mg PO BID PRN PRN Reason: Nausea/Vomiting Last Admin: 07/08/18 18:22 Dose: 4 mg Pantoprazole Sodium (Protonix Ec Tab) 40 mg PO DAILY [facility] Last Admin: 07/11/18 08:42 Dose: 40 mg Sodium Phosphate (Fleet Enema) 135 ml [place] ONCE PRN PRN Reason: Constipation - Labs Labs: 07/08/18 05:35 - Additional Findings Additional findings: - Constitutional Appears: Well - Head Exam Head Exam: ATRAUMATIC, NORMAL INSPECTION, NORMOCEPHALIC - Eye Exam Eye Exam: Normal appearance - Respiratory Exam Respiratory Exam: Clear to Ausculation Bilateral, NORMAL BREATHING PATTERN - Cardiovascular Exam Cardiovascular Exam: REGULAR RHYTHM, +S1, +S2. absent: Murmur - GI/Abdominal Exam GI & Abdominal Exam: Soft, Normal Bowel Sounds. absent: Tenderness - Back Exam Back Exam: NORMAL INSPECTION - Neurological Exam Neurological Exam: Alert, Awake - Psychiatric Exam Psychiatric exam: Normal Affect, Normal Mood - Skin Skin Exam: Normal Color, Warm Assessment and Plan - Assessment and Plan (Free Text) Assessment: 78 yo F pmhx of htn, dyslipidemia, gastritis and OA s/p R total knee replacement. Admitted to TCU for further PT/OT. plan c/w meds as ordered c/w PT/OT ask for assistance if plan to OOB encouraged PO hydration consider change to percocet prn
[2018-07-11 15:54] VITALS: RESP 20
[2018-07-12] MEDS: Pantoprazole 40 mg EC Tab PO SCH (08:03)
[2018-07-12] MEDS: Aspirin 325 mg EC Tablets PO SCH ×2 (08:03→16:04)
[2018-07-12] MEDS: Cholecalciferol 1,000 INTLU TAB PO SCH (08:04)
[2018-07-12] MEDS: Lidocaine 5% Patch TD SCH (08:05)
[2018-07-13 06:51] LABS: HEMOGLOBIN 11.4 g/dL (12.0-16.0); MEAN CELL VOLUME 91.2 fl (81.0-99.0); MEAN CORPUSCULAR HEMOGLOBIN 31.5 pg (27.0-31.0); MEAN CORPUSCULAR HGB CONC 34.6 g/dL (33.0-37.0); RBC 3.61 Mil/uL (3.80-5.20); RED CELL DISTRIBUTION WIDTH 13.4 % (11.5-14.5); WHITE BLOOD COUNT 6.5 K/uL (4.8-10.8)
[2018-07-13 07:40] LABS: BLOOD UREA NITROGEN 18 mg/dl (7-17)
[2018-07-13 07:41] LABS: GFR NON-AFRICAN AMERICAN > 60
[2018-07-13] MEDS: Cholecalciferol 1,000 INTLU TAB PO SCH (08:42)
[2018-07-13] MEDS: Pantoprazole 40 mg EC Tab PO SCH (08:42)
[2018-07-13] MEDS: Lidocaine 5% Patch TD SCH (08:43)
[2018-07-13] MEDS: Aspirin 325 mg EC Tablets PO SCH ×2 (08:43→16:31)
--- NOTE | 2018-07-13 08:52 | CP.PCM.PN ---
Subjective - Date & Time of Evaluation Date of Evaluation: 07/13/18 Time of Evaluation: 07:30 - Subjective Subjective: Patient seen and examined OOB to chair comfortable. Pain well controlled. No new complaints. Tolerating PT well. Objective - Vital Signs/Intake and Output Vital Signs (last 24 hours): Temp Pulse Resp BP Pulse Ox 97.3 F L 72 20 190/95 H 98 07/12/18 19:05 07/13/18 08:42 07/12/18 19:05 07/13/18 08:42 07/12/18 19:05 - Medications Medications: Current Medications Acetaminophen (Tylenol 325mg Tab) 650 mg PO Q4 PRN PRN Reason: Pain, moderate (4-7) Last Admin: 07/11/18 00:39 Dose: 650 mg Amlodipine Besylate (Norvasc) 5 mg PO DAILY [facility] Last Admin: 07/13/18 08:42 Dose: 5 mg Aspirin (Ecotrin) 325 mg PO BID [facility] Last Admin: 07/13/18 08:43 Dose: 325 mg Atorvastatin Calcium (Lipitor) 20 mg PO HS [facility] Last Admin: 07/12/18 21:16 Dose: 20 mg Cholecalciferol (Vitamin D) 2,000 intlu PO DAILY [facility] Last Admin: 07/13/18 08:42 Dose: 2,000 intlu Docusate Sodium (Colace) 100 mg PO BID [facility] Last Admin: 07/13/18 08:41 Dose: 100 mg Ibuprofen (Motrin Tab) 400 mg PO TID PRN PRN Reason: Pain, moderate (4-7) Last Admin: 07/12/18 16:03 Dose: 400 mg Lactulose (Enulose) 20 gm PO DAILY PRN PRN Reason: Constipation Last Admin: 07/12/18 12:11 Dose: 20 gm Lidocaine (Lidoderm) 1 ea TD DAILY [facility] Last Admin: 07/13/18 08:43 Dose: 1 ea Losartan Potassium (Cozaar) 100 mg PO DAILY [facility] Last Admin: 07/13/18 08:40 Dose: 100 mg Ondansetron HCl (Zofran Odt) 4 mg PO BID PRN PRN Reason: Nausea/Vomiting Last Admin: 07/08/18 18:22 Dose: 4 mg Pantoprazole Sodium (Protonix Ec Tab) 40 mg PO DAILY [facility] Last Admin: 07/13/18 08:42 Dose: 40 mg Sodium Phosphate (Fleet Enema) 135 ml [place] ONCE PRN PRN Reason: Constipation Tramadol HCl (Ultram) 50 mg PO Q12 PRN PRN Reason: Pain, severe (8-10) Last Admin: 07/13/18 08:47 Dose: 50 mg - Labs Labs: 07/13/18 06:26 07/13/18 06:26 - Extremities Exam Additional comments: R knee: Opsite Dressings CDI, wound CDI with steri strips ROM 0-85 deg sensation intact SP/DP/TN motor EHL/FHL/TA/G pedal pulses intact comps soft NT Assessment and Plan (1) Status post right knee replacement Assessment & Plan: POD #8 s/p R TKA doing well -Dressings changed -DVT ppx -PT/OT WBAT -CPM as per order -Orthopedically stable -above d/w Dr. Upton in agreement Status: Acute
[2018-07-13] MEDS: Metoprolol Succinate 25 mg XL Tab PO SCH (12:35)
--- NOTE | 2018-07-13 17:32 | CP.PCM.CON ---
History of Present Illness - History of Present Illness History of Present Illness: Dr Moody PMR consultation on Sabrina Taveras, born 1940, who has been admitted to [facility] for TCU following a right TKR by Dr Upton. Early ROM is quite good and able to participate with therapy and using the CPM. Pain is controlled. No bowel issues. No neurological complaints or focal weakness. Had been using a cane [employer] Review of Systems - Constitutional Constitutional: absent: Anorexia, Chills - EENT Eyes: absent: Change in Vision Ears: absent: Ear Discharge Nose/Mouth/Throat: absent: Nasal Congestion - Cardiovascular Cardiovascular: absent: Chest Pain - Respiratory Respiratory: absent: Dyspnea - Gastrointestinal Gastrointestinal: absent: Abdominal Pain - Musculoskeletal Musculoskeletal: absent: Back Pain - Neurological Neurological: absent: Abnormal Movements, Burning Sensations, Dizziness, Paresthesias - Psychiatric Psychiatric: absent: Anxiety Past Patient History - Past Medical History & Family History Past Medical History?: Yes - Past Social History Smoking Status: Never Smoked Alcohol: None Drugs: Denies Home Situation {Lives}: With Family - CARDIAC Hx Hypertension: Yes - PULMONARY Hx Respiratory Disorders: No - NEUROLOGICAL Hx Neurological Disorder: No - HEENT Hx HEENT Problems: Yes Hx Cataracts: Yes - RENAL Hx Chronic Kidney Disease: No - ENDOCRINE/METABOLIC Hx Endocrine Disorders: No - HEMATOLOGICAL/ONCOLOGICAL Hx AIDS: No Hx Human Immunodeficiency Virus (HIV): No - INTEGUMENTARY Hx Dermatological Problems: No - MUSCULOSKELETAL/RHEUMATOLOGICAL Hx Arthritis: Yes - GASTROINTESTINAL Hx Gastrointestinal Disorders: Yes Hx Gastritis: Yes - GENITOURINARY/GYNECOLOGICAL Hx Genitourinary Disorders: No - PSYCHIATRIC Hx Psychophysiologic Disorder: No Hx Substance Use: No - SURGICAL HISTORY Hx Surgeries: Yes Hx Arthroscopy: Yes (right knee) Hx Cataract Extraction: Yes (bilateral) Hx Herniorrhaphy: Yes (umbilical hernia) - ANESTHESIA Hx Anesthesia: Yes Hx Anesthesia Reactions: No Meds Allergies/Adverse Reactions: Allergies Allergy/AdvReac Type Severity Reaction Status Date / Time No Known Allergies Allergy Verified 07/07/18 14:01 - Medications Medications: Current Medications Acetaminophen (Tylenol 325mg Tab) 650 mg PO Q4 PRN PRN Reason: Pain, moderate (4-7) Last Admin: 07/11/18 00:39 Dose: 650 mg Amlodipine Besylate (Norvasc) 5 mg PO DAILY [facility] Aspirin (Ecotrin) 325 mg PO BID [facility] Last Admin: 07/13/18 16:31 Dose: 325 mg Atorvastatin Calcium (Lipitor) 20 mg PO HS [facility] Last Admin: 07/12/18 21:16 Dose: 20 mg Cholecalciferol (Vitamin D) 2,000 intlu PO DAILY [facility] Last Admin: 07/13/18 08:42 Dose: 2,000 intlu Docusate Sodium (Colace) 100 mg PO BID [facility] Last Admin: 07/13/18 16:31 Dose: 100 mg Ibuprofen (Motrin Tab) 400 mg PO TID PRN PRN Reason: Pain, moderate (4-7) Last Admin: 07/13/18 16:30 Dose: 400 mg Lactulose (Enulose) 20 gm PO DAILY PRN PRN Reason: Constipation Last Admin: 07/12/18 12:11 Dose: 20 gm Lidocaine (Lidoderm) 1 ea TD DAILY [facility] Last Admin: 07/13/18 08:43 Dose: 1 ea Losartan Potassium (Cozaar) 100 mg PO DAILY [facility] Last Admin: 07/13/18 08:40 Dose: 100 mg Metoprolol Succinate (Toprol Xl) 25 mg PO DAILY [facility] Last Admin: 07/13/18 12:35 Dose: 25 mg Ondansetron HCl (Zofran Odt) 4 mg PO BID PRN PRN Reason: Nausea/Vomiting Last Admin: 07/08/18 18:22 Dose: 4 mg Pantoprazole Sodium (Protonix Ec Tab) 40 mg PO DAILY [facility] Last Admin: 07/13/18 08:42 Dose: 40 mg Sodium Phosphate (Fleet Enema) [address] ONCE PRN PRN Reason: Constipation Tramadol HCl (Ultram) 50 mg PO Q12 PRN PRN Reason: Pain, severe (8-10) Last Admin: 07/13/18 08:47 Dose: 50 mg Physical Exam - Constitutional Appears: Non-toxic, No Acute Distress - Head Exam Head Exam: ATRAUMATIC, NORMAL INSPECTION, NORMOCEPHALIC - Eye Exam Eye Exam: EOMI - ENT Exam ENT Exam: Mucous Membranes Moist - Respiratory Exam Respiratory Exam: NORMAL BREATHING PATTERN - Cardiovascular Exam Cardiovascular Exam: REGULAR RHYTHM - GI/Abdominal Exam GI & Abdominal Exam: Distended, Normal Bowel Sounds. absent: Firm - Extremities Exam Extremities exam: Negative for: calf tenderness, full ROM (approximately 80 degrees right knee ROM with soft end range) - Neurological Exam Neurological exam: Alert, Oriented x3 - Psychiatric Exam Psychiatric exam: Normal Affect, Normal Mood - Skin Skin Exam: Warm Results - Vital Signs Recent Vital Signs: Last Vital Signs Temp 97.9 F 07/13/18 09:26 Pulse 84 07/13/18 12:35 Resp 20 07/13/18 09:26 BP 143/77 07/13/18 12:35 Pulse Ox 97 07/13/18 09:26 - Labs Result Diagrams: 07/13/18 06:26 07/13/18 06:26 Labs: Laboratory Results - last 24 hr 07/13/18 07/13/18 06:26 06:26 WBC 6.5 RBC 3.61 L Hgb 11.4 L Hct 33.0 L MCV 91.2 D MCH 31.5 H MCHC 34.6 RDW 13.4 Plt Count 282 D Sodium 142 Potassium 3.5 L Chloride 104 Carbon Dioxide 28 Anion Gap 14 BUN 18 H Creatinine 0.9 Est GFR ( Amer) > 60 Est GFR (Non-Af Amer) > 60 Random Glucose 106 H Calcium 9.0 Assessment & Plan - Assessment and Plan (Free Text) Assessment: PT/OT to continue to help increase functional independence Pain: controlled Vascular: no evidence of DVT. LMWH for prophylaxis GI: No evidence of constipation or diarrhea Patient continues to be an excellent TCU rehabilitation candidate and will have continued focused PT, OT and recreational therapy to help facilitate a safe and appropriate d/c plan
[2018-07-14 07:05] LABS: BLOOD UREA NITROGEN 19 mg/dl (7-17); CALCIUM 8.7 mg/dL (8.4-10.2); GFR NON-AFRICAN AMERICAN > 60
[2018-07-14] MEDS: Lidocaine 5% Patch TD SCH (08:20)
[2018-07-14] MEDS: Aspirin 325 mg EC Tablets PO SCH ×2 (08:20→17:07)
[2018-07-14] MEDS: Cholecalciferol 1,000 INTLU TAB PO SCH (08:21)
[2018-07-14] MEDS: Pantoprazole 40 mg EC Tab PO SCH (08:21)
[2018-07-14] MEDS: Metoprolol Succinate 25 mg XL Tab PO SCH (08:21)
[2018-07-14] MEDS: Potassium Chloride 20 mEq/15 ml LIQ UD PO SCH (12:16)
--- NOTE | 2018-07-14 18:01 | CP.PCM.PN ---
Subjective - Date & Time of Evaluation Date of Evaluation: 07/14/18 Time of Evaluation: 15:00 - Subjective Subjective: Patient seen and examined OOB to chair comfortable. Pain well controlled. Nurse informed about ecchymosis noticed at medial knee, no increased pain. No other complaints. Denies CP/SOB/N/V/D. Objective - Vital Signs/Intake and Output Vital Signs (last 24 hours): Temp Pulse Resp BP Pulse Ox 97.0 F L 51 L 20 130/62 96 07/14/18 13:55 07/14/18 13:55 07/14/18 13:55 07/14/18 13:55 07/14/18 13:55 - Medications Medications: Current Medications Acetaminophen (Tylenol 325mg Tab) 650 mg PO Q4 PRN PRN Reason: Pain, moderate (4-7) Last Admin: 07/11/18 00:39 Dose: 650 mg Amlodipine Besylate (Norvasc) 5 mg PO DAILY [facility] Last Admin: 07/14/18 08:21 Dose: 5 mg Aspirin (Ecotrin) 325 mg PO BID [facility] Last Admin: 07/14/18 17:07 Dose: 325 mg Atorvastatin Calcium (Lipitor) 20 mg PO HS [facility] Last Admin: 07/13/18 21:18 Dose: 20 mg Cholecalciferol (Vitamin D) 2,000 intlu PO DAILY [facility] Last Admin: 07/14/18 08:21 Dose: 2,000 intlu Docusate Sodium (Colace) 100 mg PO BID [facility] Last Admin: 07/14/18 17:06 Dose: 100 mg Ibuprofen (Motrin Tab) 400 mg PO TID PRN PRN Reason: Pain, moderate (4-7) Last Admin: 07/14/18 17:06 Dose: 400 mg Lactulose (Enulose) 20 gm PO DAILY PRN PRN Reason: Constipation Last Admin: 07/12/18 12:11 Dose: 20 gm Lidocaine (Lidoderm) 1 ea TD DAILY [facility] Last Admin: 07/14/18 08:20 Dose: 1 ea Losartan Potassium (Cozaar) 100 mg PO DAILY [facility] Last Admin: 07/14/18 08:21 Dose: 100 mg Metoprolol Succinate (Toprol Xl) 25 mg PO DAILY [facility] Last Admin: 07/14/18 08:21 Dose: 25 mg Ondansetron HCl (Zofran Odt) 4 mg PO BID PRN PRN Reason: Nausea/Vomiting Last Admin: 07/08/18 18:22 Dose: 4 mg Pantoprazole Sodium (Protonix Ec Tab) 40 mg PO DAILY [facility] Last Admin: 07/14/18 08:21 Dose: 40 mg Potassium Chloride (Potassium Chloride Oral Soln) 20 meq PO DAILY [facility] Last Admin: 07/14/18 12:16 Dose: 20 meq Sodium Phosphate (Fleet Enema) 135 ml [place] ONCE PRN PRN Reason: Constipation - Labs Labs: 07/13/18 06:26 07/14/18 06:33 - Extremities Exam Additional comments: R knee: Opsite Dressings CDI, wound CDI with steri strips diffuse ecchymosis medially from knee to medial calf, no tenderness ROM 0-85 deg sensation intact SP/DP/TN motor EHL/FHL/TA/G pedal pulses intact calf soft NT b/l Assessment and Plan (1) Status post right knee replacement Assessment & Plan: POD #9 s/p R TKA doing well -Will monitor ecchymosis for progression, no intervention at this time -DVT ppx -PT/OT WBAT -CPM as per order -Orthopedically stable -above d/w Dr. Upton in agreement Status: Acute
--- NOTE | 2018-07-15 07:40 | CP.PCM.PN ---
Subjective - Date & Time of Evaluation Date of Evaluation: 07/15/18 Time of Evaluation: 07:00 - Subjective Subjective: Patient seen and examined at bedside comfortable. Pain well controlled. No new complaints. Denies CP/SOB/N/V/D. Objective - Vital Signs/Intake and Output Vital Signs (last 24 hours): Temp Pulse Resp BP Pulse Ox 97.7 F 59 L 20 172/70 H 98 07/15/18 07:38 07/15/18 07:38 07/15/18 07:38 07/15/18 07:38 07/15/18 07:38 - Medications Medications: Current Medications Acetaminophen (Tylenol 325mg Tab) 650 mg PO Q4 PRN PRN Reason: Pain, moderate (4-7) Last Admin: 07/11/18 00:39 Dose: 650 mg Amlodipine Besylate (Norvasc) 5 mg PO DAILY [facility] Last Admin: 07/14/18 08:21 Dose: 5 mg Aspirin (Ecotrin) 325 mg PO BID [facility] Last Admin: 07/14/18 17:07 Dose: 325 mg Atorvastatin Calcium (Lipitor) 20 mg PO HS [facility] Last Admin: 07/14/18 21:05 Dose: 20 mg Cholecalciferol (Vitamin D) 2,000 intlu PO DAILY [facility] Last Admin: 07/14/18 08:21 Dose: 2,000 intlu Docusate Sodium (Colace) 100 mg PO BID [facility] Last Admin: 07/14/18 17:06 Dose: 100 mg Ibuprofen (Motrin Tab) 400 mg PO TID PRN PRN Reason: Pain, moderate (4-7) Last Admin: 07/14/18 17:06 Dose: 400 mg Lactulose (Enulose) 20 gm PO DAILY PRN PRN Reason: Constipation Last Admin: 07/12/18 12:11 Dose: 20 gm Lidocaine (Lidoderm) 1 ea TD DAILY [facility] Last Admin: 07/14/18 08:20 Dose: 1 ea Losartan Potassium (Cozaar) 100 mg PO DAILY [facility] Last Admin: 07/14/18 08:21 Dose: 100 mg Metoprolol Succinate (Toprol Xl) 25 mg PO DAILY [facility] Last Admin: 07/14/18 08:21 Dose: 25 mg Ondansetron HCl (Zofran Odt) 4 mg PO BID PRN PRN Reason: Nausea/Vomiting Last Admin: 07/08/18 18:22 Dose: 4 mg Pantoprazole Sodium (Protonix Ec Tab) 40 mg PO DAILY [facility] Last Admin: 07/14/18 08:21 Dose: 40 mg Potassium Chloride (Potassium Chloride Oral Soln) 20 meq PO DAILY [facility] Last Admin: 07/14/18 12:16 Dose: 20 meq Sodium Phosphate (Fleet Enema) [address] ONCE PRN PRN Reason: Constipation - Labs Labs: 07/13/18 06:26 07/14/18 06:33 - Extremities Exam Additional comments: R knee: Opsite Dressings CDI diffuse ecchymosis medially from knee to medial calf unchanged since yesterday, no tenderness sensation intact SP/DP/TN motor EHL/FHL/TA/G pedal pulses intact calf soft NT b/l Assessment and Plan (1) Status post right knee replacement Assessment & Plan: POD #10 s/p R TKA doing well -Continue to monitor ecchymosis for progression, no intervention at this time -DVT ppx -PT/OT WBAT -CPM as per order -Orthopedically stable for discharge this weekend -f/u in office in 7-10 days -above d/w Dr. Upton in agreement Status: Acute
[2018-07-15] MEDS: Aspirin 325 mg EC Tablets PO SCH ×2 (08:33→16:58)
[2018-07-15] MEDS: Cholecalciferol 1,000 INTLU TAB PO SCH (08:33)
[2018-07-15] MEDS: Metoprolol Succinate 25 mg XL Tab PO SCH (08:34)
[2018-07-15] MEDS: Lidocaine 5% Patch TD SCH ×3 (08:34→10:25)
[2018-07-15] MEDS: Potassium Chloride 20 mEq/15 ml LIQ UD PO SCH (08:36)
[2018-07-15] MEDS: Pantoprazole 40 mg EC Tab PO SCH (08:36)
[2018-07-15] MEDS ORDERED: Potassium Chloride 20 mEq ER Tab PO SCH (09:00)
--- NOTE | 2018-07-15 18:03 | CP.PCM.PN ---
Subjective - Date & Time of Evaluation Date of Evaluation: 07/15/18 Time of Evaluation: 18:02 - Subjective Subjective: Patient in the rest room present discussed case with nursing she is doing well ambulating 100' in therapies with RW and modified Ind. ROM is at 80 degrees she is set for d/c home 07/17/18 continue current care to that point pain is controlled No significant constipation Objective - Vital Signs/Intake and Output Vital Signs (last 24 hours): Temp Pulse Resp BP Pulse Ox 97.9 F 57 L 20 138/70 97 07/15/18 16:08 07/15/18 16:08 07/15/18 16:08 07/15/18 16:08 07/15/18 16:08 - Medications Medications: Current Medications Acetaminophen (Tylenol 325mg Tab) 650 mg PO Q4 PRN PRN Reason: Pain, moderate (4-7) Last Admin: 07/11/18 00:39 Dose: 650 mg Amlodipine Besylate (Norvasc) 5 mg PO DAILY [facility] [place] Last Admin: 07/15/18 08:34 Dose: 5 mg Aspirin (Ecotrin) 325 mg PO BID [facility] [place] Last Admin: 07/15/18 16:58 Dose: 325 mg Atorvastatin Calcium (Lipitor) 20 mg PO HS [facility] [place] Last Admin: 07/14/18 21:05 Dose: 20 mg Cholecalciferol (Vitamin D) 2,000 intlu PO DAILY [facility] [place] Last Admin: 07/15/18 08:33 Dose: 2,000 intlu Docusate Sodium (Colace) 100 mg PO BID [facility] [place] Last Admin: 07/15/18 16:58 Dose: 100 mg Ibuprofen (Motrin Tab) 400 mg PO TID PRN PRN Reason: Pain, moderate (4-7) Last Admin: 07/15/18 16:58 Dose: 400 mg Lactulose (Enulose) 20 gm PO DAILY PRN PRN Reason: Constipation Last Admin: 07/12/18 12:11 Dose: 20 gm Lidocaine (Lidoderm) 2 ea TD DAILY [facility] [place] Last Admin: 07/15/18 10:25 Dose: Not Given Losartan Potassium (Cozaar) 100 mg PO DAILY [facility] [place] Last Admin: 07/15/18 08:34 Dose: 100 mg Metoprolol Succinate (Toprol Xl) 25 mg PO DAILY [facility] [place] Last Admin: 07/15/18 08:34 Dose: 25 mg Ondansetron HCl (Zofran Odt) 4 mg PO BID PRN PRN Reason: Nausea/Vomiting Last Admin: 07/08/18 18:22 Dose: 4 mg Pantoprazole Sodium (Protonix Ec Tab) 40 mg PO DAILY [facility] [place] Last Admin: 07/15/18 08:36 Dose: 40 mg Potassium Chloride (Potassium Chloride Oral Soln) 20 meq PO DAILY [facility] [place] Last Admin: 07/15/18 08:36 Dose: 20 meq Sodium Phosphate (Fleet Enema) 135 ml OR ONCE PRN PRN Reason: Constipation - Labs Labs: 07/13/18 06:26 07/14/18 06:33
[2018-07-16] MEDS: Lidocaine 5% Patch TD SCH (08:26)
[2018-07-16] MEDS: Metoprolol Succinate 25 mg XL Tab PO SCH (08:28)
[2018-07-16] MEDS: Aspirin 325 mg EC Tablets PO SCH ×2 (08:29→16:07)
[2018-07-16] MEDS: Cholecalciferol 1,000 INTLU TAB PO SCH (08:29)
[2018-07-16] MEDS: Pantoprazole 40 mg EC Tab PO SCH (08:29)
[2018-07-16] MEDS: Potassium Chloride 20 mEq/15 ml LIQ UD PO SCH (08:30)
[2018-07-17 07:59] VITALS: BP 139/70; PULSE 53; TEMP 97; O2SAT 99
[2018-07-17] MEDS: Aspirin 325 mg EC Tablets PO SCH (08:49)
[2018-07-17] MEDS: Pantoprazole 40 mg EC Tab PO SCH (08:51)
[2018-07-17] MEDS: Cholecalciferol 1,000 INTLU TAB PO SCH (08:51)
[2018-07-17] MEDS: Metoprolol Succinate 25 mg XL Tab PO SCH (08:52)
[2018-07-17] MEDS: Lidocaine 5% Patch TD SCH (08:54)
[2018-07-17] MEDS: Potassium Chloride 20 mEq/15 ml LIQ UD PO SCH (08:57)
== END 2018-07-17 15:30 | disposition home or self-care (01) | DRG 561 ==
LOC: UNDOADMIN 11:45 → H.TCU 11:45
PROVIDERS: ADMIT Family Medicine; ATTEND Family Medicine
PROC: F07Z8FZ Transfer Training Treatment using Assistive, Adaptive, Supportive or Protective Equipment (ICD-10-PCS; principal; 2018-07-07)
PROC: F07K6GZ Therapeutic Exercise Treatment of Musculoskeletal System - Upper Back / Upper Extremity using Aerobic Endurance and Conditioning Equipment (ICD-10-PCS; 2018-07-07)
PROC: F07Z9FZ Gait Training/Functional Ambulation Treatment using Assistive, Adaptive, Supportive or Protective Equipment (ICD-10-PCS; 2018-07-07)
PROC: F07L6GZ Therapeutic Exercise Treatment of Musculoskeletal System - Lower Back / Lower Extremity using Aerobic Endurance and Conditioning Equipment (ICD-10-PCS; 2018-07-07)
DX: Z47.1 Aftercare following joint replacement surgery (principal); Z96.651 Presence of right artificial knee joint; I10 Essential (primary) hypertension; E78.5 Hyperlipidemia, unspecified; K29.70 Gastritis, unspecified, without bleeding; E55.9 Vitamin D deficiency, unspecified; K59.00 Constipation, unspecified

== ENCOUNTER 2018-11-11 07:01 | Day surgery (SDC) | payer MEDICARE ==
[2018-11-11] MEDS ORDERED: Lactated Ringer's 1,000 ML IV ONE (09:17)
[2018-11-11] MEDS ORDERED: Etomidate 20 mg/10ml Inj IV ONE (10:05)
[2018-11-11] MEDS ORDERED: Oxycodone/Acetaminophen 5/325 mg Tab PO PRN (10:27)
[2018-11-11] MEDS ORDERED: Lactated Ringer's 1,000 ML IV SCH (10:30)
[2018-11-11 12:50] VITALS: RESP 18; O2SAT 100
[2018-11-11 13:42] VITALS: BP 118/78; PULSE 56; TEMP 98
--- NOTE | 2018-11-11 14:49 | OP ---
PROCEDURE DATE: 11/11/2018 PREOPERATIVE DIAGNOSIS: Right knee stiffness. POSTOPERATIVE DIAGNOSIS: Right knee stiffness. PROCEDURE: Right knee manipulation under anesthesia. SURGEON: Adrian Upton MD. FRAME REPAIRER: None. TYPE OF ANESTHESIA: Sedation. ESTIMATED BLOOD LOSS: None. COMPLICATIONS: None. HISTORY: The patient is a 78-year-old female, underwent total knee replacement approximately three months ago. The patient had restricted range of flexion past 90. The patient was indicated for manipulation under anesthesia. I reviewed the risks and benefits of the procedure with the patient in detail. The risks included but not limited to bleeding, infection, neurovascular damage, iatrogenic fracture, need for further surgery, continued stiffness, blood clot, limb loss among others. The patient fully understood the risks and benefits and opted to proceed. DESCRIPTION OF PROCEDURE: On the day of the procedure, the patient was brought to preop holding area. A laterality sheet was completed confirming the patient's right knee to be the correct operative site. The patient was brought onto the operating room table, was placed supine and was given conscious sedation and with gentle manipulation, the patient's knee was flexed to 125 degrees in full extension. The patient was awakened, transferred to stretcher and taken to the recovery room. There was no complication of the procedure. Adrian Upton MD
--- NOTE | 2018-11-11 14:53 | RAD ---
Date of service: 11/11/2018 PROCEDURE: Right Knee Radiographs. HISTORY: pt s/p knee manipulation pt in pacu COMPARISON: 07/05/2018. FINDINGS: BONES: Stable appearance of orthopedic hardware/visible osseous structures. JOINTS: Normal. No osteoarthritis. JOINT EFFUSION: No appreciable joint effusion. OTHER FINDINGS: None. IMPRESSION: Satisfactory postoperative status.
== END 2018-11-11 13:55 | disposition home or self-care (01) ==
LOC: H.OPSURG 07:01
PROVIDERS: ATTEND Orthopaedic Surgery
DX: M25.661 Stiffness of right knee, not elsewhere classified (principal); E78.5 Hyperlipidemia, unspecified; I10 Essential (primary) hypertension; K29.50 Unspecified chronic gastritis without bleeding
CPT/HCPCS: 27570; 73560; J2001; J7120